=== PATIENT | female | born 1950 | race Hispanic/Latino ===

== ENCOUNTER 2019-10-02 10:58 | Outpatient (RCR) | payer MEDICARE ==
[~2019-10-02 10:58] MED LIST: ASPIRIN CHEW81 MG PO; LOPRESSOR25 MG PO; LOSARTAN POTAS100 MG PO; PLAVIX75 MG PO; Z.0.LOMOTIL TABLET1 PO; Z.0.LOSARTAN POTAS10 PO; Z.0.METRONIDAZOLE500 PO; Z.0.SEPTRA DS TABL1 PO; Z.0.ZOLOFT50 MG PO; ZOCOR20 MG PO
== END 2019-10-03 ==
LOC: PT 10:58
PROVIDERS: ATTEND Specialist
DX: M75.121 Complete rotator cuff tear or rupture of right shoulder, not specified as traumatic (principal); M25.511 Pain in right shoulder; M25.611 Stiffness of right shoulder, not elsewhere classified; M62.81 Muscle weakness (generalized)